=== PATIENT | female | born 1985 | race Caucasian/White ===

== ENCOUNTER 2016-05-09 22:30 | Emergency (ER) | payer BC ==
[2016-05-09 23:00] LABS: BASO % 0.2 % (0-6); EOS % 5.8 % (0-6); GRAN % 65.8 % (47-80); HEMATOCRIT 36.9 % (35.0-47.0); HEMOGLOBIN 12.4 gm/dl (11.6-16.0); MEAN CELL VOLUME 88.5 fl (81-97); MEAN CORPUSCULAR HEMOGLOBIN 29.7 pg (27-33); MEAN CORPUSCULAR HGB CONC 33.6 g/dl (32-36); MEAN PLATELET VOLUME 10.3 fl (7.4-10.4); MONO % 7.2 % (0-9); PLATELET COUNT 237 K/uL (130-400); RED BLOOD COUNT 4.17 M/uL (3.80-5.40); RED CELL DISTRIBUTION WIDTH 12.8 % (11.5-14.5); WHITE BLOOD COUNT W/O DIFF 10.2 K/uL (4.2-12.2)
[2016-05-09] MEDS: 0.9 % SODIUM CHLORIDE 1,000 ML BAG IV ONE (23:02)
[2016-05-09 23:12] LABS: ALB/GLOB RATIO 1.7 (1.1-1.8); ALBUMIN 4.3 gm/dL (3.5-5.0); ALKALINE PHOSPHATASE 63 U/L (38-126); ALT/SGPT 33 U/L (9-52); AST/SGOT 34 U/L (14-36); BILIRUBIN,TOTAL 0.45 mg/dL (0.2-1.3); BLOOD UREA NITROGEN 10 mg/dL (7-17); CREATININE 0.5 mg/dL (0.52-1.04); EST GLOMERULAR FILTRATION RATE > 60 ml/min; GLUCOSE,RANDOM 133 mg/dL (70-110); TOTAL PROTEIN 6.9 gm/dL (6.3-8.2)
[2016-05-09 23:30] LABS: URINE APPEARANCE CLEAR; URINE BILIRUBIN NEGATIVE (NEGATIVE); URINE BLOOD TRACE-I (NEGATIVE); URINE COLOR YELLOW; URINE GLUCOSE (UA) NEGATIVE (NEGATIVE); URINE KETONE NEGATIVE (NEGATIVE); URINE LEUKOCYTE ESTERASE NEGATIVE (NEGATIVE); URINE NITRITE NEGATIVE (NEGATIVE); URINE PROTEIN NEGATIVE (NEGATIVE); URINE UROBILINOGEN 0.2 E.U./dL (0.20 - 1.00)
[2016-05-09 23:45] LABS: URINE AMORPHOUS SEDIMENT 2+; URINE MUCUS LIGHT; URINE WBC 0 - 2 (0-2/hpf)
[2016-05-10] MEDS: ACETAMINOPHEN 500 MG TABLET PO ONE (00:11)
--- NOTE | 2016-05-10 00:51 | Emergency Department Record ---
History of Present Illness - General Chief complaint: complication Stated complaint: PREG & CRAMPING Time Seen by Provider: 05/09/16 22:37 Source: Patient Mode of Arrival: Ambulatory Limitations: No limitations Travel/Exposure to [place] Within 21 Days of Symptoms: No - History of Present Illness Initial comments: pt c/o cramping and headache. no spotting. pt is 13 weeks . she has 1 child 12yrs ols and went to a fertility specialist for this . she has been to see dr pozo. she has been lightheaded also Complaint: Abdominal pain Onset/Timin -: Days(s) Location: Abdomen Radiation: None Severity: Moderate Associated symptoms: Abdominal pain, Dysuria, Nausea/vomiting, Weakness Vaginal bleeding: None LMP (females 10-50): 3 months ago Pre- care: Followed by OB - Related Data : 2 Para: 1 Home Medications Medication Instructions Recorded Confirmed Last Taken No Home Med [NO HOME MEDS] 05/09/16 05/09/16 Unknown Allergies Allergy/AdvReac Type Severity Reaction Status Date / Time No Known Drug Allergies Allergy Verified 01/24/15 09:34 Review of Systems Reviewed: No additional complaints except as noted below Constitutional: Reports: As per HPI. Denies: Chills, Fever, Malaise, Night sweats, Weakness, Weight change Eyes: Reports: As per HPI. Denies: Eye discharge, Eye pain, Photophobia, Vision change ENT: Reports: As per HPI. Denies: Congestion, Dental pain, Ear pain, Epistaxis , Hearing loss, Throat pain Respiratory: Reports: As per HPI. Denies: Cough, Dyspnea, Hemoptysis, Stridor, Wheezes Cardiovascular: Reports: As per HPI. Denies: Arrhythmia, Chest pain, Dyspnea on exertion, Edema, Murmurs, Orthopnea, Palpitations, Paroxysmal nocturnal dyspnea, Rheumatic Fever, Syncope Endocrine: Reports: As per HPI. Denies: Fatigue, Heat or cold intolerance, Polydipsia, Polyuria Gastrointestinal: Reports: As per HPI. Denies: Abdominal pain, Constipation, Diarrhea, Hematemesis, Hematochezia, Melena, Nausea, Vomiting Genitourinary: Reports: As per HPI. Denies: Abnormal menses, Discharge, Dyspareunia, Dysuria, Frequency, Hematuria, Incontinence, Retention, Urgency Musculoskeletal: Reports: As per HPI. Denies: Arthralgia, Back pain, Gout, Joint swelling, Myalgia, Neck pain Skin: Reports: As per HPI. Denies: Bruising, Change in color, Change in hair/ nails, Lesions, Pruritus, Rash Neurological: Reports: As per HPI. Denies: Abnormal gait, Confusion, Headache, Numbness, Paresthesias, Seizure, Tingling, Tremors, Vertigo, Weakness Psychiatric: Reports: As per HPI. Denies: Anxiety, Auditory hallucinations, Depression, Homicidal thoughts, Suicidal thoughts, Visual hallucinations Hematological/Lymphatic: Reports: As per HPI. Denies: Anemia, Blood Clots, Easy bleeding, Easy bruising, Swollen glands Past Medical History - SOCIAL HISTORY Smoking Status: Never smoker Alcohol Use: None Drug Use: None - RESPIRATORY Hx Respiratory Disorders: No - CARDIOVASCULAR Hx Cardio Disorders: No - NEURO Hx Neuro Disorders: No - GI Hx GI Disorders: No - Hx Genitourinary Disorders: No - ENDOCRINE Hx Endocrine Disorders: No - MUSCULOSKELETAL Hx Musculoskeletal Disorders: No - PSYCH Hx Psych Problems: No - HEMATOLOGY/ONCOLOGY Hx Hematology/Oncology Disorders: No Family Medical History Any Significant Family History?: No Family Hx Comment (NOT TO BE USED IN PLACE OF ITEMS BELOW): unknown Physical Exam - General General Appearance: Alert, Oriented x3, Cooperative, Mild distress - Head Head exam: Normal inspection - Eye Eye exam: Normal appearance, PERRL, EOMI Pupils: Normal accommodation - ENT ENT exam: Normal exam, Mucous membranes moist, Normal external ear exam, Normal orophraynx Ear exam: Normal external inspection. negative: External canal tenderness Nasal Exam: Normal inspection. negative: Discharge, Sinus tenderness Mouth exam: Normal external inspection, Tongue normal Teeth exam: Normal inspection. negative: Dental caries Throat exam: Normal inspection. negative: Tonsillar erythema, Tonsillar exudate - Neck Neck exam: Normal inspection, Full ROM. negative: Tenderness - Respiratory Respiratory exam: Normal lung sounds bilaterally. negative: Respiratory distress - Cardiovascular Cardiovascular Exam: Regular rate, Normal rhythm, Normal heart sounds - GI/Abdominal GI/Abdominal exam: Soft, Normal bowel sounds. negative: Tenderness - Rectal Rectal exam: Deferred - exam: Normal external exam, Normal speculum exam - Extremities Extremities exam: Normal inspection, Full ROM, Normal capillary refill. negative: Tenderness - Back Back exam: Reports: Normal inspection, Full ROM. Denies: Muscle spasm, Rash noted, Tenderness - Neurological Neurological exam: Alert, CN II-XII intact, Normal gait, Oriented X3 - Psychiatric Psychiatric exam: Normal affect, Normal mood - Skin Skin exam: Dry, Intact, Normal color, Warm Course Vital Signs 05/09/16 05/09/16 05/10/16 22:33 23:03 00:01 Temperature 97.5 F L Pulse Rate 111 H Pulse Rate [ 98 H Pulse Ox Probe] Respiratory 20 16 Rate Blood Pressure 133/81 Blood Pressure 146/74 130/66 [Right Arm] Pulse Ox 97 97 05/10/16 00:13 Temperature Pulse Rate Pulse Rate [ 91 H Pulse Ox Probe] Respiratory 16 Rate Blood Pressure Blood Pressure 121/77 [Right Arm] Pulse Ox 98 - Reevaluation(s) Reevaluation #1: 05/10/16 00:56 pt feels much better. Reevaluation #2: 05/10/16 00:[address] d/w pt who refused because of . pt told if headache gets worse she could need it but headache is resolved currently Medical Decision Making - Lab Data Result diagrams: 05/09/16 22:44 05/09/16 22:44 Lab Results 05/09/16 05/09/16 05/09/16 Range/Units 22:44 22:44 23:20 WBC 10.2 (4.2-12.2) K/uL RBC 4.17 (3.80-5.40) M/uL Hgb 12.4 (11.6-16.0) gm/dl Hct 36.9 (35.0-47.0) % MCV 88.5 (81-97) fl MCH 29.7 (27-33) pg MCHC 33.6 (32-36) g/dl RDW 12.8 (11.5-14.5) % Plt Count 237 (130-400) K/uL MPV 10.3 (7.4-10.4) fl Gran % 65.8 (47-80) % Lymphocytes % 21.0 (16-45) % Monocytes % 7.2 (0-9) % Eosinophils % 5.8 (0-6) % Basophils % 0.2 (0-6) % Sodium 135 L (136-145) mmol/L Potassium 4.6 (3.5-5.1) mmol/L Chloride 103 (98-107) mmol/L Carbon Dioxide 21.0 L (22-30) mmol/L Anion Gap 11.0 (7-16) BUN 10 (7-17) mg/dL Creatinine 0.5 L (0.52-1.04) mg/dL Estimated GFR > 60 ml/min Random Glucose 133 H (70-110) mg/dL Calcium 9.5 (8.5-10.1) mg/dL Total Bilirubin 0.45 (0.2-1.3) mg/dL AST 34 (14-36) U/L ALT 33 (9-52) U/L Alkaline Phosphatase 63 (38-126) U/L Total Protein 6.9 (6.3-8.2) gm/dL Albumin 4.3 (3.5-5.0) gm/dL Globulin 2.6 (1.4-4.8) gm/dL Albumin/Globulin Ratio 1.7 (1.1-1.8) Total Beta HCG 51909.00 mIU/mL Urine Color Yellow Urine Appearance Clear Urine pH 6.5 (5.0-8.0) Ur Specific [place] 1.020 (1.002-1.030) Urine Protein Negative (NEGATIVE) Urine Glucose (UA) Negative (NEGATIVE) Urine Ketones Negative (NEGATIVE) Urine Blood Trace-i (NEGATIVE) Urine Nitrite Negative (NEGATIVE) Urine Bilirubin Negative (NEGATIVE) Urine Urobilinogen 0.2 (0.20 - 1.00) E.U./dL Ur Leukocyte Esterase Negative (NEGATIVE) Urine RBC 3 - 6 (NONE SEEN) Urine WBC 0 - 2 (0-2/hpf) Ur Epithelial Cells 3 - 6 (FEW) Amorphous Sediment 2+ Urine Mucus Light Disposition Disposition: Discharge Clinical Impression: Cramping complicating , antepartum Headache Qualifiers: Headache type: tension-type Headache chronicity pattern: acute headache Intractability: not intractable Qualified Code(s): G44.209 - Tension-type headache, unspecified, not intractable Disposition: Home, Self-Care Condition: (1) Good Instructions: (ED) Additional Instructions: follow up tomorrow with dr pozo. return sooner if worse. rest Forms: Patient Portal Access
== END 2016-05-10 01:10 | disposition home or self-care (01) ==
LOC: ER 22:30
DX: O99.89 Other specified diseases and conditions complicating pregnancy, childbirth and the puerperium (principal); R10.819 Abdominal tenderness, unspecified site; G44.209 Tension-type headache, unspecified, not intractable; R11.2 Nausea with vomiting, unspecified; R30.0 Dysuria; R53.1 Weakness; Z3A.13 13 weeks gestation of pregnancy
CPT/HCPCS: 80053; 81001; 84702; 85025; 96360; 96361; 99284; J7030

== ENCOUNTER 2017-08-13 13:44 | Emergency (ER) | payer BC ==
--- NOTE | 2017-08-13 14:25 | Emergency Department Record ---
History of Present Illness - General Chief complaint: Dental Stated complaint: TOOTH PAIN Time Seen by Provider: 08/13/17 14:05 Source: Patient Mode of Arrival: Ambulatory Limitations: No limitations - History of Present Illness Initial comments: The patient has had L upper dental tooth pain for about 3 weeks. She now is on her 2nd round of Antibiotics for it and it is still painful. Her Dentist told her to come to the ER for an IV. She denies any fever, swelling, rash or any trouble swallowing. Additionally the patient is 4 months . MD complaint: Tooth pain Onset/Timin -: Week(s) Location: Other Severity scale (1-10): 10 Consistency: Constant Improves with: None Worsens with: None - Related Data Home Medications Medication Instructions Recorded Confirmed Last Taken Clindamycin HCl [Cleocin HCl] 300 mg PO TID 08/13/17 08/13/17 Unknown Vit,Calc78/Iron/Folic 1 each PO DAILY 08/13/17 08/13/17 Unknown [Prenatabs FA Tablet] Allergies Allergy/AdvReac Type Severity Reaction Status Date / Time No Known Drug Allergies Allergy Verified 01/24/15 09:34 Travel Screening - Travel/Exposure Within Last 30 Days Have you traveled within the last 30 days?: No Past Medical History - SOCIAL HISTORY Smoking Status: Never smoker Alcohol Use: None Drug Use: None - RESPIRATORY Hx Respiratory Disorders: No - CARDIOVASCULAR Hx Cardio Disorders: No - NEURO Hx Neuro Disorders: No - GI Hx GI Disorders: No - Hx Genitourinary Disorders: No - ENDOCRINE Hx Endocrine Disorders: No - MUSCULOSKELETAL Hx Musculoskeletal Disorders: No - PSYCH Hx Psych Problems: No - HEMATOLOGY/ONCOLOGY Hx Hematology/Oncology Disorders: No Family Medical History Any Significant Family History?: No Family Hx Comment (NOT TO BE USED IN PLACE OF ITEMS BELOW): unknown Physical Exam - General General Appearance: Alert, Oriented x3, Cooperative - Head Head exam: Atraumatic, Normocephalic - Eye Eye exam: Normal appearance, PERRL - ENT ENT exam: Normal exam (Neg for any facial swelling or erythema.) Teeth exam: Normal inspection, Dental tenderness # (13 and 14. There is no palpable abscess or any gum line swelling.). negative: Dental caries Throat exam: Normal inspection. negative: Tonsillar erythema, Tonsillar exudate - Neck Neck exam: Normal inspection, Full ROM. negative: Tenderness - Respiratory Respiratory exam: Normal lung sounds bilaterally. negative: Respiratory distress Course Vital Signs 08/13/17 13:55 Temperature 97.5 F L Pulse Rate [ 103 H Pulse Ox Probe] Respiratory 20 Rate Blood Pressure 134/79 [Left Arm] Pulse Ox 97 - Reevaluation(s) Reevaluation #1: I did explain to the patient there is no medical reason to get an IV at this time. She did become angry due to not receiving the Abx. She then stated she needed to leave because she had an ill child at home. 08/13/17 14:23 Disposition Disposition: Discharge Clinical Impression: Pain, dental Disposition: Home, Self-Care Condition: (2) Stable Instructions: Toothache (ED) Forms: Patient Portal Access Time of Disposition: 14:25 Quality - Quality Measures Quality Measures: N/A - Blood Pressure Screening View Details: Yes Does Patient Have Any of the Following: No Blood Pressure Classification: Pre-Hypertensive BP Reading Systolic Measurement: 134 Diastolic Measurement: 79 Screening for High Blood Pressure: < Pre-Hypertensive BP, F/U Documented > [ [id number]] Pre-Hypertensive Follow-up Interventions: Referral to alternative/primary care provider.
== END 2017-08-13 14:30 | disposition home or self-care (01) ==
LOC: ER 13:44
DX: Z53.20 Procedure and treatment not carried out because of patient's decision for unspecified reasons (principal)